=== PATIENT | female | born 2000 | race Asian ===

== ENCOUNTER 2018-08-19 04:29 | Emergency (ER) | payer OTHER ==
[~2018-08-19] VITALS: Ht 157.5 cm; Wt 55.8 kg
[2018-08-19 04:29] VITALS: BP 97/59
--- NOTE | 2018-08-19 04:29 | NUR ---
17/F BIB [facility] FROM [facility], C/O VOMITING AND EPIGASTRIC PAIN, STARTED 6 HRS AGO AFTER EATING SALAD WITH OLD DRESSING. REPORTS LOOSE STOOL 1 HR AGO. REPORTS CHILLS. DENIES FEVER, CP, SOB OR DYSURIA. AOX4, SKIN NORMAL WARM AND DRY, RR EVEN AND UNLABORED. LUNG SOUNDS CLEAR BL. BS ACTIVE X4, ABD SOFT FLAT MOSTLY TENDER TO EPIGASTRIC AREA, MILDLY TENDER DIFFUSELY. HX SEASONAL ALLERGIES
--- NOTE | 2018-08-19 04:46 | NUR ---
[facility] AT BEDSIDE
--- NOTE | 2018-08-19 04:47 | NUR ---
DR RODRIGUEZ AT BEDSIDE
[2018-08-19] MEDS ORDERED: ONDANSETRON 4 MG ODT PO ONE (04:50)
[2018-08-19 05:01] VITALS: BP 96/56
--- NOTE | 2018-08-19 05:01 | NUR ---
Patient discharged with v/s stable. Written and verbal after care instructions given and explained. Patient alert, oriented and verbalized understanding of instructions. Ambulatory with steady gait. All questions addressed prior to discharge. ID band removed. Patient advised to follow up with PMD. Rx of MOTRIN, ZOFRAN given. Patient educated on indication of medication including possible reaction and side effects. Opportunity to ask questions provided and answered.
== END 2018-08-19 05:01 | disposition home or self-care (01) ==
LOC: MED 04:29
DX: R11.2 Nausea with vomiting, unspecified (principal); R10.13 Epigastric pain
CPT/HCPCS: 81002; 81025; 99283; Q0162